=== PATIENT | female | born 1985 | race African-American/Black ===

== ENCOUNTER 2016-08-22 01:28 | Emergency (ER) | payer SELFPAY ==
[2016-08-22] MEDS ORDERED: Ketorolac Tromethamine 30 MG/ML VIAL ONE (01:44)
== END 2016-08-22 01:48 | disposition home or self-care (01) ==
LOC: BURERS 01:28
DX: R51 Headache (principal)
CPT/HCPCS: 99283; J1885

== ENCOUNTER 2016-09-05 21:47 | Emergency (ER) | payer SELFPAY ==
[2016-09-05] MEDS ORDERED: Ondansetron ODT 4 MG TAB ONE (22:00)
== END 2016-09-05 22:05 | disposition home or self-care (01) ==
LOC: BURERS 21:47
DX: K52.9 Noninfective gastroenteritis and colitis, unspecified (principal)
CPT/HCPCS: 99283; Q0162

== ENCOUNTER 2016-12-15 16:10 | Emergency (ER) | payer SELFPAY | END 2016-12-15 16:57 | disposition home or self-care (01) | LOC: BURERS 16:10 | DX: R11.2 Nausea with vomiting, unspecified (principal); R10.11 Right upper quadrant pain | CPT/HCPCS: 99283 ==

== ENCOUNTER 2017-09-03 19:47 | Emergency (ER) | payer SELFPAY | END 2017-09-03 20:23 | disposition home or self-care (01) | LOC: BURERS 19:47 | DX: J01.90 Acute sinusitis, unspecified (principal) | CPT/HCPCS: 99283 ==